=== PATIENT | female | born 1995 | race Caucasian/White ===

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

== ENCOUNTER → 2017-03-18 | Outpatient (CLI) | payer MEDICAID ==
[~2017-03-18] MED LIST changes: +AMOXICILLIN 50500 MG PO; +DIFLUCAN 200MG200 MG PO; +FLAGYL 500MG.500 MG PO; +FLAGYL500 M1 PO; +LO LOESTRIN FE1 TAB PO
== END ==
LOC: LAB 11:54
DX: N76.0 Acute vaginitis (principal)

== ENCOUNTER 2017-03-22 09:30 | Emergency (ER) | payer MEDICAID ==
[~2017-03-22] VITALS: Ht 154.9 cm; Wt 89.8 kg
--- OUTSIDE RECORDS SUMMARY | 2017-03-22 09:35 | External Medical Summary Rpt | CCD ---
Author Author [employer] Organization [employer] Address Unknown Phone Unavailable Purpose Continuity of Care Document - through 2016
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
--- OUTSIDE RECORDS SUMMARY | 2017-03-22 09:35 | External Medical Summary Rpt | CCD ---
Demographics Preferred Language Martiniquais Marital Status Unknown Orthodoxy Affiliation Unknown Race Unknown Ethnic Group Unknown Author Author SUZIE Address Unknown Phone Immunization No patient found.
--- OUTSIDE RECORDS SUMMARY | 2017-03-22 09:35 | External Medical Summary Rpt | CCD ---
Demographics Preferred Language Montserratian Marital Status Unknown Anglican Affiliation Unknown Race Unknown Ethnic Group Unknown Author Author SUZIE Address Unknown Phone Immunization No patient found.
--- OUTSIDE RECORDS SUMMARY | 2017-03-22 09:35 | External Medical Summary Rpt | CCD ---
Author Author , SUZIE LARSEN Address Unknown Phone [email or web address] Purpose Continuity of Care Document - 02-21-2017 [...] 017 K/mm3 ed monocyt 18:47 e count [place] % = 5.1 % 1.7-9.3 complet 017 [...] SQUARE METERS Comment: If this patient is -Cuban, then multiply the Comment: result by 1.210. [...]
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
[2017-03-22] MEDS ORDERED: DIFLUCAN150 MG PO (11:28)
[2017-03-22 11:30] VITALS: BP 126/78
== END 2017-03-22 11:34 | disposition home or self-care (01) ==
LOC: UTC 09:30
DX: N76.0 Acute vaginitis (principal)